=== PATIENT | male | born 1975 | race Caucasian/White ===

== ENCOUNTER 2016-08-26 16:48 | Emergency (ER) | payer BC ==
[~2016-08-26 16:48] MED LIST: BACTRIM DS TABL1 TA1 PO; FLEXERIL PO; KEFLEX500 MG PO; NAPROXEN PO; VICODIN 5/1 TAB 5/50 PO
== END 2016-08-26 16:54 | disposition home or self-care (01) ==
LOC: CFTX 16:48
DX: L03.811 Cellulitis of head [any part, except face] (principal); L02.91 Cutaneous abscess, unspecified; Z88.0 Allergy status to penicillin
CPT/HCPCS: 99282